=== PATIENT | female | born 2000 | race Hispanic/Latino ===

== ENCOUNTER 2020-12-07 18:42 | Emergency (ER) | payer MEDICAID, OTHER ==
[2020-12-07] MEDS ORDERED: METOCLOPRAMIDE 10 MG/2 ML VIAL ONE (20:23)
[2020-12-07] MEDS ORDERED: ACETAMINOPHEN 325 MG TAB ONE (20:23)
[2020-12-07] MEDS ORDERED: SODIUM CHLORIDE 0.9% 1000ML 1,000 ML IV ONE (20:24)
[2020-12-07 21:51] LABS: BASOPHILS % (AUTO) 0.2 % (0.0-5.0); EOSINOPHILS % (AUTO) 0.3 % (0.0-8.0); HEMATOCRIT 41.6 % (36-48); MEAN CORPUSCULAR HEMOGLOBIN 30.4 pg (27.0-33.0); MEAN CORPUSCULAR HGB CONC 32.7 g/dL (32.0-36.0); MEAN CORPUSCULAR VOLUME 92.9 fL (80-100); MONOCYTES % (AUTO) 4.2 % (3.0-13.0); PLATELET COUNT (AUTO) 276 K/uL (130-400); RED BLOOD CELL COUNT(AUTO) 4.48 MIL/uL (4.00-5.50); WHITE BLOOD COUNT (AUTO) 10.9 K/uL (4.8-10.8)
[2020-12-07 22:00] LABS: APPEARANCE,URINE CLOUDY (CLEAR); BILIRUBIN,URINE SMALL (NEGATIVE); COLOR,URINE YELLOW (YELLOW); GLUCOSE, URINE (UA) NEGATIVE (NEGATIVE); KETONES,URINE >=80 mg/dL (NEGATIVE); LEUKOCYTE ESTERASE ,URINE TRACE (NEGATIVE); NITRATE,URINE NEGATIVE (NEGATIVE); OCCULT BLOOD,URINE NEGATIVE (NEGATIVE); PH,URINE 7.5 (5.0-8.0); PROTEIN,URINE 30 mg/dL (NEGATIVE)
[2020-12-07 22:13] LABS: BACTERIA,URINE Few /HPF (None Seen); MUCUS,URINE Moderate LPF (None Seen); RBC,URINE 0-1 /HPF (0-1); SQUAMOUS EPITHELIAL CELL,UR Few /HPF (0-2)
[2020-12-07 22:14] LABS: AMORPHOUS SEDIMENT,UR Few /LPF (None Seen)
[2020-12-07 22:16] LABS: CARBON DIOXIDE 26 mmol/L (21-32); CHLORIDE 99 mmol/L (101-111); CREATININE 0.6 mg/dL (0.5-1.5); GLOMERULAR FILTR. RATE CALC 134 mL/min (>60); GLUCOSE,RANDOM 92 mg/dL (70-105); POTASSIUM 4.1 mmol/L (3.5-5.1); SODIUM SERUM 136 mmol/L (136-145); UREA NITROGEN, BLOOD 6 mg/dL (7-18)
[2020-12-07 22:42] LABS: ALANINE AMINOTRANSFERASE 13 U/L (12-78); ALBUMIN 3.8 g/dL (3.5-5.0); ASPARTATE AMINOTRANSFERASE 25 U/L (10-37); BILIRUBIN,TOTAL 0.4 mg/dL (0.2-1.0); HCG,QUANTITATIVE 127754 mIU/mL (0-5); TOTAL PROTEIN, SERUM 8.4 g/dL (6.0-8.3)
[2020-12-07 22:47] LABS: LIPASE < 50 U/L (114-286)
== END 2020-12-07 23:56 | disposition home or self-care (01) ==
LOC: EDH 18:42
DX: O23.41 Unspecified infection of urinary tract in pregnancy, first trimester (principal); O21.0 Mild hyperemesis gravidarum; Z91.041 Radiographic dye allergy status; Z98.890 Other specified postprocedural states; Z3A.10 10 weeks gestation of pregnancy
CPT/HCPCS: 36415; 76817; 80053; 81001; 83690; 84702; 85025; 86900; 86901; 87077; 87088; 87186; 96361; 96374; 99284; J2765; J7030

== ENCOUNTER 2021-04-25 16:32 | Observation (INO) | payer MEDICAID ==
[~2021-04-25] VITALS: Ht 162.6 cm; Wt 80.3 kg
[2021-04-25 16:33] VITALS: BP 129/81
[2021-04-25 17:16] LABS: APPEARANCE,URINE Clear (CLEAR); BILIRUBIN,URINE Negative (NEGATIVE); COLOR,URINE Yellow (YELLOW); GLUCOSE, URINE (UA) Negative (NEGATIVE); KETONES,URINE Negative (NEGATIVE); LEUKOCYTE ESTERASE ,URINE Small (NEGATIVE); NITRATE,URINE Negative (NEGATIVE); OCCULT BLOOD,URINE Negative (NEGATIVE); PROTEIN,URINE Trace mg/dL (NEGATIVE)
[2021-04-25 17:42] LABS: MUCUS,URINE Rare LPF (None Seen)
[2021-04-25 17:44] LABS: CALCIUM OXALATE CRYSTALS,UR Moderate /LPF (None Seen); YEAST,URINE BUDDING Few /HPF (None Seen)
[2021-04-25 17:45] LABS: BACTERIA,URINE Few /HPF (None Seen); RBC,URINE 0-1 /HPF (0-1); WBC,URINE 0-1 /HPF (0-1)
== END 2021-04-25 18:20 | disposition home or self-care (01) ==
LOC: EDH 16:32 → LDH 16:33
PROVIDERS: ADMIT Obstetrics & Gynecology; ATTEND Obstetrics & Gynecology
DX: O26.893 Other specified pregnancy related conditions, third trimester (principal); R10.31 Right lower quadrant pain; Z3A.30 30 weeks gestation of pregnancy; Z98.891 History of uterine scar from previous surgery
CPT/HCPCS: 59025; 81001; G0378 ×2; G0379

== ENCOUNTER 2022-11-29 09:32 | Observation (INO) | payer MEDICAID ==
[~2022-11-29] VITALS: Ht 162.6 cm; Wt 90.3 kg
[~2022-11-29 09:32] MED LIST: IBUP-1493 PO
[2022-11-29 09:52] LABS: HEMATOCRIT 48.3 % (36-48); MEAN CORPUSCULAR HEMOGLOBIN 30.4 pg (27.0-33.0); MEAN CORPUSCULAR HGB CONC 32.5 g/dL (32.0-36.0); MEAN CORPUSCULAR VOLUME 93.6 fL (79-99); RED BLOOD CELL COUNT(AUTO) 5.16 MIL/uL (4.00-5.50); RED CELL DISTRIBUTION WIDTH 14.4 % (11.0-15.5); WHITE BLOOD COUNT (AUTO) 11.7 K/uL (4.8-10.8)
[2022-11-29 10:01] LABS: CREATININE 0.8 mg/dL (0.5-1.5); POTASSIUM 3.6 mmol/L (3.5-5.1)
[2022-11-29 10:06] LABS: ALBUMIN 3.2 g/dL (3.5-5.0); TOTAL PROTEIN, SERUM 6.9 g/dL (6.0-8.3)
[2022-11-29 10:13] LABS: APPEARANCE,URINE CLOUDY (CLEAR); BILIRUBIN,URINE NEGATIVE (NEGATIVE); COLOR,URINE YELLOW (YELLOW); GLUCOSE, URINE (UA) NEGATIVE (NEGATIVE); KETONES,URINE NEGATIVE (NEGATIVE); LEUKOCYTE ESTERASE ,URINE NEGATIVE Leu/uL (NEGATIVE); NITRATE,URINE NEGATIVE (NEGATIVE); OCCULT BLOOD,URINE NEGATIVE (NEGATIVE); PH,URINE 5.5 (5.0-8.0); PROTEIN,URINE NEGATIVE (NEGATIVE); UROBILINOGEN,URINE 0.2 mg/dL (0.2-1.0)
[2022-11-29 10:47] LABS: BACTERIA,URINE RARE /HPF (None Seen); MUCUS,URINE FEW LPF (None Seen); SQUAMOUS EPITHELIAL CELL,UR MOD /HPF (0-2)
[2022-11-29] MEDS ORDERED: PRED20TA3 PO (12:49)
[2022-11-29] MEDS ORDERED: MORPHINE 2 MG SYG IVP ONE ×2 (14:00→18:30)
[2022-11-29] MEDS ORDERED: ONDANSETRON 4MG INJ IVP ONE (14:00)
[2022-11-29] MEDS ORDERED: IBUPROFEN 200 MG TAB PO PRN (16:00)
[2022-11-29] MEDS ORDERED: ACETAMINOPHEN 500 MG TABLET PO PRN (16:00)
[2022-11-29] MEDS: CLINDAMYCIN IVPB 600MG/50ML 50 ML IV SCH (16:11)
[2022-11-29 18:12] VITALS: BP 100/50
[2022-11-29 19:33] VITALS: BP 93/61
[2022-11-29 23:27] VITALS: BP 103/59
[2022-11-30] MEDS: CLINDAMYCIN IVPB 600MG/50ML 50 ML IV SCH (00:23)
[2022-11-30 03:26] VITALS: BP 95/56
[2022-11-30 06:45] LABS: HEMATOCRIT 42.5 % (36-48); MEAN CORPUSCULAR HEMOGLOBIN 30.2 pg (27.0-33.0); MEAN CORPUSCULAR HGB CONC 31.1 g/dL (32.0-36.0); MEAN CORPUSCULAR VOLUME 97.3 fL (79-99); RED BLOOD CELL COUNT(AUTO) 4.37 MIL/uL (4.00-5.50); RED CELL DISTRIBUTION WIDTH 14.6 % (11.0-15.5); WHITE BLOOD COUNT (AUTO) 8.8 K/uL (4.8-10.8)
[2022-11-30 06:57] LABS: CREATININE 0.7 mg/dL (0.5-1.5); POTASSIUM 3.3 mmol/L (3.5-5.1)
[2022-11-30 07:25] VITALS: BP 102/58
[2022-11-30] MEDS ORDERED: KCL 20 MEQ ERTAB PO ONE (07:30)
[2022-11-30] MEDS: DOXYCYCLINE 100MG+NS 250ML IV SCH ×2 (08:26→20:28)
[2022-11-30] MEDS: ONDANSETRON 4MG INJ IVP PRN (08:36)
[2022-11-30 12:11] VITALS: BP 106/56
[2022-11-30] MEDS ORDERED: DIPHENHYDRAMINE HCL 25 MG CAPSULE PO PRN (15:30)
[2022-11-30 15:50] VITALS: BP 100/62
[2022-11-30] MEDS ORDERED: HYDROXYZINE 25 MG TABLET PO PRN (18:30)
[2022-11-30 20:17] VITALS: BP 111/85
[2022-11-30] MEDS ORDERED: HYDROXYZINE 25 MG TABLET PO SCH (21:00)
[2022-11-30 23:24] VITALS: BP 108/58
[2022-12-01 03:40] VITALS: BP 111/55
[2022-12-01 06:50] LABS: BASOPHILS % (AUTO) 0.3 % (0.0-5.0); EOSINOPHILS % (AUTO) 5.1 % (0.0-8.0); HEMATOCRIT 39.1 % (36-48); LYMPHOCYTES % (AUTO) 41.9 % (21.0-51.0); MEAN CORPUSCULAR HEMOGLOBIN 30.8 pg (27.0-33.0); MEAN CORPUSCULAR HGB CONC 31.7 g/dL (32.0-36.0); MONOCYTES % (AUTO) 5.5 % (3.0-13.0); NEUTROPHILS % (AUTO) 46.8 % (40.0-77.0); PLATELET COUNT (AUTO) 179 K/uL (130-400); RED BLOOD CELL COUNT(AUTO) 4.03 MIL/uL (4.00-5.50); RED CELL DISTRIBUTION WIDTH 14.4 % (11.0-15.5); WHITE BLOOD COUNT (AUTO) 7.1 K/uL (4.8-10.8)
[2022-12-01 07:13] LABS: ALBUMIN 2.8 g/dL (3.5-5.0); CREATININE 0.7 mg/dL (0.5-1.5); MAGNESIUM 1.9 mg/dL (1.80-2.40); POTASSIUM 3.7 mmol/L (3.5-5.1)
[2022-12-01 07:22] VITALS: BP 110/67
[2022-12-01] MEDS ORDERED: HYDROXYZINE 25 MG TABLET PO SCH (08:00)
[2022-12-01] MEDS: DOXYCYCLINE 100MG+NS 250ML IV SCH (08:20)
[2022-12-01] MEDS: ONDANSETRON 4MG INJ IVP PRN (08:29)
[2022-12-01 11:10] VITALS: BP 98/56
[2022-12-01] MEDS ORDERED: DOXY100C5 PO (12:13)
[2022-12-05 16:11] LABS: B.BURGOR (LYME) IGG WB INTERP Negative (.); LYME IGM-WB INTERP Negative (.); LYME IGM-WB P23 AB Absent (.); LYME IGM-WB P39 AB Absent (.); LYME IGM-WB P41 AB Absent (.)
== END 2022-12-01 13:42 | disposition home or self-care (01) ==
LOC: EDH 09:32 → EDHIP 09:33 → UNDOADMOB 15:40 → WSH 17:30
PROVIDERS: ADMIT Internal Medicine; ATTEND Internal Medicine
DX: L03.116 Cellulitis of left lower limb (principal); L03.115 Cellulitis of right lower limb; L03.114 Cellulitis of left upper limb; L03.113 Cellulitis of right upper limb; L52 Erythema nodosum; L03.213 Periorbital cellulitis; L02.92 Furuncle, unspecified; F43.22 Adjustment disorder with anxiety; R45.851 Suicidal ideations; F39 Unspecified mood [affective] disorder; Q33.3 Agenesis of lung; E87.6 Hypokalemia; E66.9 Obesity, unspecified; E03.9 Hypothyroidism, unspecified; F17.210 Nicotine dependence, cigarettes, uncomplicated; Z87.442 Personal history of urinary calculi; Z98.891 History of uterine scar from previous surgery; Z79.899 Other long term (current) drug therapy
CPT/HCPCS: 96376 ×3; 96365; 96375; 99284; 80053 ×2; 85027 ×2; 85651; 87088; 81001; 36415 ×3; 96366 ×2; 96367; 80048; 81025; 83735; 85025; G0378 ×46; J2405 ×3; J3490 ×5; A4600; Q0163

== ENCOUNTER 2023-08-06 15:41 | Emergency (ER) | payer MEDICAID ==
[~2023-08-06] VITALS: Ht 162.6 cm; Wt 85.3 kg
[~2023-08-06 15:41] MED LIST changes: +DOXY100C5 PO; -IBUP-1493 PO
[2023-08-06 17:14] LABS: BASOPHILS # (AUTO) 0.02 K/uL (0.00-0.20); BASOPHILS % (AUTO) 0.2 % (0.0-5.0); EOSINOPHILS # (AUTO) 0.05 K/uL (0.00-0.70); EOSINOPHILS % (AUTO) 0.5 % (0.0-8.0); HEMATOCRIT 37.1 % (36-48); IMMATURE GRANULOCYTE ABSOLUTE 0.05 K/uL (0-1); LYMPHOCYTES # (AUTO) 2.8 K/uL (1.0-4.8); LYMPHOCYTES % (AUTO) 26.4 % (21.0-51.0); MEAN CORPUSCULAR HEMOGLOBIN 29.5 pg (27.0-33.0); MEAN CORPUSCULAR HGB CONC 33.2 g/dL (32.0-36.0); MONOCYTES # (AUTO) 0.6 K/uL (0.1-1.0); MONOCYTES % (AUTO) 5.1 % (3.0-13.0); NEUTROPHILS # (AUTO) 7.2 K/uL (1.8-7.7); NEUTROPHILS % (AUTO) 67.3 % (40.0-77.0); PLATELET COUNT (AUTO) 302 K/uL (130-400); RED BLOOD CELL COUNT(AUTO) 4.17 MIL/uL (4.00-5.50); RED CELL DISTRIBUTION WIDTH 13.8 % (11.0-15.5); WHITE BLOOD COUNT (AUTO) 10.7 K/uL (4.8-10.8)
[2023-08-06 17:26] LABS: CREATININE 0.6 mg/dL (0.5-1.5); POTASSIUM 3.5 mmol/L (3.5-5.1)
[2023-08-06 17:52] LABS: ALBUMIN 3.4 g/dL (3.5-5.0); BILIRUBIN,TOTAL 0.2 mg/dL (0.2-1.0)
[2023-08-06 20:55] LABS: APPEARANCE,URINE TURBID (CLEAR); BILIRUBIN,URINE NEGATIVE (NEGATIVE); COLOR,URINE YELLOW (YELLOW); GLUCOSE, URINE (UA) NEGATIVE (NEGATIVE); KETONES,URINE 10 mg/dL (NEGATIVE); LEUKOCYTE ESTERASE ,URINE NEGATIVE Leu/uL (NEGATIVE); NITRATE,URINE NEGATIVE (NEGATIVE); OCCULT BLOOD,URINE NEGATIVE (NEGATIVE); PH,URINE 6.5 (5.0-8.0); PROTEIN,URINE 10 mg/dL (NEGATIVE); UROBILINOGEN,URINE 0.2 mg/dL (0.2-1.0)
[2023-08-06 21:00] LABS: ADD UA MICROSCOPIC YES
[2023-08-06 21:08] LABS: MUCUS,URINE RARE LPF (None Seen); SQUAMOUS EPITHELIAL CELL,UR MOD /HPF (0-2); WBC CLUMP FEW /HPF (0-1); YEAST,URINE BUDDING MOD /HPF (None Seen)
[2023-08-06] MEDS ORDERED: ONDA4TAB10 PO (23:41)
[2023-08-06] MEDS ORDERED: CEPH500B PO (23:41)
[2023-08-06 23:47] VITALS: BP 128/72; PULSE 78; RESP 18; O2SAT 100
== END 2023-08-06 23:54 | disposition home or self-care (01) ==
LOC: EDH 15:41
DX: O23.41 Unspecified infection of urinary tract in pregnancy, first trimester (principal); N39.0 Urinary tract infection, site not specified; O26.891 Other specified pregnancy related conditions, first trimester; R11.2 Nausea with vomiting, unspecified; R10.2 Pelvic and perineal pain; Z3A.01 Less than 8 weeks gestation of pregnancy
CPT/HCPCS: 36415; 76801; 80053; 81001; 84702; 85025; 87088